=== PATIENT | male | born 1965 | race Caucasian/White ===

== ENCOUNTER → 2021-02-07 | Outpatient (CLI) | payer OTHER ==
--- NOTE | 2021-02-07 09:16 | XR ---
EXAMINATION TYPE: XR abdomen 1V DATE OF EXAM: 02/07/2021 COMPARISON: NONE HISTORY: Pain TECHNIQUE: One view abdominal series FINDINGS: The osseous structures are intact. The bowel gas pattern is nonspecific. Lung bases are clear. Nons pecific calcifications in the pelvis. Arthropathy of the hips. Multiple bilateral renal calculi noted largest measuring 1 cm in the upper pole the right kidney. LAP-BAND surgery suggested. IMPRESSION: 1. Bilateral nephrolithiasis. Suspect right-sided ureteral calculus. Distal left ureteral calculus no t excluded correlate with noncontrast CT as clinically warranted..
== END | disposition home or self-care (01) ==
LOC: RADXRYALE 08:50
PROVIDERS: ATTEND Family Medicine
DX: N20.2 Calculus of kidney with calculus of ureter (principal)
CPT/HCPCS: 74018